=== PATIENT | female | born 1940 | race Caucasian/White ===

== ENCOUNTER → 2020-01-02 | Outpatient (CLI) | payer OTHER ==
[~2020-01-02] MED LIST: DIOVAN40 MG; EVISTA60 MG; FOLIC ACID/B-6/1 TAB
== END | disposition home or self-care (01) ==
LOC: MRI 08:17
PROVIDERS: ATTEND Radiology Diagnostic Radiology
DX: M54.5 Low back pain (principal)
CPT/HCPCS: 72148